=== PATIENT | male | born 1980 | race Hispanic/Latino ===

== ENCOUNTER 2021-03-29 15:20 | Emergency (ER) | payer BC ==
--- NOTE | 2021-03-29 16:02 | RAD REPORT ---
EXAM DESCRIPTION: RAD - Chest Single View - 03/29/2021 3:55 pm CLINICAL HISTORY: PALPITATIONS Chest pain. COMPARISON: CHEST PA AND LAT 2 VIEW dated 01/13/2013 FINDINGS: Portable technique limits examination quality. The lungs are grossly clear. The heart is normal in size. No displaced fractures. IMPRESSION: No acute intrathoracic process suspected.
[2021-03-29] MEDS ORDERED: NA CHLORIDE 0.9% 1,000 ML ONE (16:03)
[2021-03-29 16:24] LABS: Absolute Lymphocytes (CBC) 2.4 K/uL (0.7-4.9); Basophils % 1.3 % (0-1.3); Hematocrit 44.6 % (39.6-49.0); Lymphocytes % 21.9 % (15.3-44.8); MPV 9.2 fL (7.6-11.3); RBC Red Blood Cell Count 4.76 M/uL (4.33-5.43)
[2021-03-29 16:40] LABS: Protime INR 1.03
[2021-03-29 17:00] LABS: ALT/SGPT 128 U/L (12-78); Albumin 3.6 g/dL (3.4-5.0); Alkaline Phosphatase 112 U/L (45-117); BUN Blood Urea Nitrogen 12 mg/dL (7-18); Bicarbonate 20 mmol/L (21-32); Bilirubin Direct 0.3 mg/dL (0-0.2); Bilirubin Total 0.8 mg/dL (0.2-1.0); Glucose Level 202 mg/dL (74-106); NT PRO-BNP 32 pg/mL (<125); Protein, Total 7.7 g/dL (6.4-8.2); Sodium Level 135 mmol/L (136-145); Troponin (Emerg Dept Use Only) < 0.02 ng/mL (0.0-0.045)
[2021-03-29 17:04] LABS: AST/SGOT 128 U/L (15-37); Magnesium 1.6 mg/dL (1.8-2.4)
[2021-03-29 17:06] LABS: Potassium 2.8 mmol/L (3.5-5.1)
[2021-03-29] MEDS ORDERED: MAGNESIUM SULFATE 1 gm IVPB 1 GM/100 ML BAG IV ONE (17:40)
[2021-03-29] MEDS ORDERED: POTASSIUM CL SA 10 MEQ TAB PO ONE (17:40)
[2021-03-29] MEDS ORDERED: Ringers Lactate 1,000 ML IV ONE (18:06)
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
[2021-03-29 19:36] VITALS: TEMP 98.6
[2021-03-29 19:45] VITALS: BP 138/90; O2SAT 100
--- NOTE | 2021-03-30 10:38 | EKG ---
Test Date: 2021-03-29 Test Time: 15:49:26 Subgrade Tester: HB MEASUREMENT RESULTS: Intervals: Rate: 117 VT: 126 QRSD: 84 QT: 330 QTc: 460 [place]: P: 25 VT: 126 QRS: 52 T: 46 INTERPRETIVE STATEMENTS: Sinus tachycardia Otherwise normal ECG Compared to ECG 03/27/2013 12:51:33 Sinus rhythm no longer present Electronically Signed On 03-30-21 10:36:34 CDT by Memo Bobo
== END 2021-03-29 19:28 | disposition home or self-care (01) ==
LOC: ER 15:20
DX: E87.6 Hypokalemia (principal); E83.42 Hypomagnesemia; R00.0 Tachycardia, unspecified; F17.210 Nicotine dependence, cigarettes, uncomplicated
CPT/HCPCS: 96361; 93005; 85025; 80048; 36415; 83735; 85610; 85379; 80076; 84484; 83880; 71045; 96374; 99284; J3475; J7120; J7030